=== PATIENT | female | born 1950 | race Caucasian/White ===

== ENCOUNTER 2022-11-21 06:25 | Day surgery (SDC) | payer MEDICARE, BC ==
[2022-11-16 09:18] VITALS: BMI 23.6
[2022-11-21] MEDS ORDERED: Lidocaine 1% (PF) 30 ML VIAL ONE (06:52)
[2022-11-21] MEDS ORDERED: CEFAZOLIN 1 GM VIAL ONE (06:52)
[2022-11-21] MEDS ORDERED: Gentamicin 80 MG/2 ML VIAL ONE (06:52)
[2022-11-21] MEDS ORDERED: Vancomycin (BATCH) 1.5 GRAM/300 ML BAG ONE (06:57)
[2022-11-21] MEDS ORDERED: Propofol 500 MG/50 ML VIAL ONE (07:24)
[2022-11-21] MEDS ORDERED: Famotidine/PF 20 mg/2ml Vial ONE (07:55)
[2022-11-21] MEDS ORDERED: Ondansetron PF 4 MG/2 ML Vial ONE (08:27)
[2022-11-21] MEDS ORDERED: Rocuronium Bromide 10 MG/ML (10ML VIAL) ONE (08:27)
[2022-11-21] MEDS ORDERED: Dexamethasone 20 MG/5 ML VIAL ONE (08:27)
[2022-11-21] MEDS ORDERED: Lidocaine 1% PF 5 ML VIAL ONE (08:27)
[2022-11-21] MEDS ORDERED: Succinylcholine Chloride 100 MG/5 ML SYRINGE FS ONE (08:27)
[2022-11-21] MEDS ORDERED: PROPOFOL 200 MG/20 ML VIAL ONE (08:27)
[2022-11-21] MEDS ORDERED: ePHEDrine 50 MG/ML VIAL ONE (08:27)
[2022-11-21] MEDS ORDERED: Iopamidol 370 76% 50 ML VIAL FS ONE (08:32)
[2022-11-21] MEDS ORDERED: FENTANYL 50 MCG/ML 1 ML VIAL ONE (08:59)
[2022-11-21] MEDS ORDERED: Acetaminophen 500 MG TAB ONE (14:06)
== END 2022-11-21 14:35 | disposition home or self-care (01) ==
LOC: SDC 06:25
PROVIDERS: ATTEND Internal Medicine Cardiovascular Disease
PROC: 0JH606Z Insertion of Pacemaker, Dual Chamber into Chest Subcutaneous Tissue and Fascia, Open Approach (ICD-10-PCS; principal; 2022-11-21)
PROC: 02H63JZ Insertion of Pacemaker Lead into Right Atrium, Percutaneous Approach (ICD-10-PCS; 2022-11-21)
PROC: 02HK3JZ Insertion of Pacemaker Lead into Right Ventricle, Percutaneous Approach (ICD-10-PCS; 2022-11-21)
DX: I49.5 Sick sinus syndrome (principal); R00.1 Bradycardia, unspecified; R55 Syncope and collapse; Z79.01 Long term (current) use of anticoagulants; Z79.620 Long term (current) use of immunosuppressive biologic; Z79.890 Hormone replacement therapy; Z79.899 Other long term (current) drug therapy; Z88.1 Allergy status to other antibiotic agents
CPT/HCPCS: 33208; 93005; J3010; J3370; J0690; J1100; J1580; J2001; J2405; J2704; J3490; S0028

== ENCOUNTER 2024-06-09 09:55 | Outpatient (CLI) | payer MEDICARE, BC | END 2024-06-09 09:56 | disposition home or self-care (01) | LOC: RAD 09:55 | PROVIDERS: ATTEND Internal Medicine Critical Care Medicine | DX: R06.00 Dyspnea, unspecified (principal) | CPT/HCPCS: 71046 ==